=== PATIENT | male | born 1990 | race Caucasian/White ===

== ENCOUNTER 2020-12-18 15:01 | Emergency (ER) | payer OTHER ==
[~2020-12-18 15:01] MED LIST: PROTONIX 40MG T40 MG PO
== END 2020-12-18 16:25 | disposition home or self-care (01) ==
LOC: FER 15:01
DX: S01.81XA Laceration without foreign body of other part of head, initial encounter (principal); Z23 Encounter for immunization; W26.8XXA Contact with other sharp object(s), not elsewhere classified, initial encounter; Y92.89 Other specified places as the place of occurrence of the external cause; Y99.0 Civilian activity done for income or pay
CPT/HCPCS: 90471; 90715